=== PATIENT | male | born 1975 | race Caucasian/White ===

== ENCOUNTER 2018-10-24 09:28 | Day surgery (SDC) | payer OTHER ==
[2018-10-23 13:36] VITALS: BMI 25.0
--- NOTE | 2018-10-24 09:33 | HP ---
History & Physical Update - History History: No Change - Physical Physical: No Change - Assessment Assessment: No Change - Plan Plan: No Change
[2018-10-24] MEDS ORDERED: ONDANSETRON 4 MG/2 ML VIAL IVPUSH PRN (10:20)
[2018-10-24] MEDS ORDERED: oxyCODONE HCL 5 MG TABLET PO PRN (10:20)
[2018-10-24] MEDS ORDERED: PROMETHAZINE HCL 25 MG/1 ML VIAL IVPUSH PRN (10:20)
[2018-10-24] MEDS ORDERED: LACTATED RINGERS SOLUTION 1,000 ML IV SCH (10:30)
[2018-10-24] MEDS ORDERED: MIDAZOLAM HCL 2 MG/2 ML SINGLE DOSE VIAL ONE ×3 (10:39→11:08)
[2018-10-24] MEDS ORDERED: BUPIVACAINE HCL/PF 0.5% (5MG/ML) 10 ML VIAL ONE (10:41)
[2018-10-24] MEDS ORDERED: ceFAZolin SODIUM 1 GM VIAL ONE (11:04)
[2018-10-24] MEDS ORDERED: SODIUM CHLORIDE 0.9% P/F 10 ML VIAL IJ ONE (11:04)
[2018-10-24] MEDS ORDERED: ceFAZolin SODIUM 1 GM VIAL IVPB ONE (11:05)
[2018-10-24] MEDS ORDERED: LIDOCAINE 1%/EPI 1:100000 (20 ML MULTI DOSE VIAL) IJ ONE ×2 (11:30)
[2018-10-24] MEDS ORDERED: BUPIVACAINE HCL/PF 0.25% (2.5MG/ML) 10 ML VIAL IJ ONE ×2 (11:31)
[2018-10-24] MEDS ORDERED: LIDOCAINE HCL 2% JELLY 10 ML CARTRIDGE ONE (11:59)
--- NOTE | 2018-10-24 12:14 | OP ---
Operative Note - Note: Operative Date: 10/24/18 Pre-Operative Diagnosis: Stage 2 & 4 hemorrhoids Operation: proctosigmoidoscopy, eua, hemorrhoidectomy and suture ligation of internal hemorrhoids Findings: Stage 4 RP column and stage 2 RA & LL column hemorrhoids Post-Operative Diagnosis: Same as Pre-op Surgeon: Alli Espinoza Anesthesia: Spinal Specimens Removed: hemorrhoids Estimated Blood Loss (mls): 5 Operative Report Dictated: Yes
[2018-10-24] MEDS ORDERED: LIDOCAINE HCL 2% JELLY (5 ML/TUBE) TP ONE (12:30)
--- NOTE | 2018-10-24 12:39 | OP ---
DATE OF OPERATION: 10/24/2018 PROCEDURES PERFORMED: Proctosigmoidoscopy, examination under anesthesia, hemorrhoidectomy and suture ligation of stage 2 hemorrhoids. PREOPERATIVE DIAGNOSIS: Stage 4 hemorrhoids. POSTOPERATIVE DIAGNOSIS: Stage 4 right posterior column hemorrhoids and stage 2 right anterior and left lateral column hemorrhoids. SURGEON: Alli Espinoza M.D. ANESTHESIA: Spinal. INDICATIONS: This is a 43-year-old male who presented with long-standing history of prolapsing hemorrhoids, with recent thrombosis about 1 month ago, which was treated initially with sitz baths, pain medicine and stool softener. After the thrombosis was resolved, the patient was advised hemorrhoidectomy. Consent was obtained after discussing the risks, benefits and alternatives to the procedure. DESCRIPTION OF PROCEDURE: The patient was brought to the operating room and placed initially in the sitting position. Spinal anesthesia was administered. The patient was then placed in the lithotomy position. The perineum was prepped and draped in the usual sterile fashion. Perianal anesthesia using 1% lidocaine with epinephrine mixed with 0.25% bupivacaine was administered. The proctoscope was then inserted and passed up to 15 cm. The rectal mucosa was noted to be unremarkable. Using the lighted Bud-Douglass anal retractor, the anal canal was carefully inspected. One large stage 4 hemorrhoid at the right posterior column was again identified, with prolapsing rectal mucosa, the size of which was about 4 3 cm. Multiple small internal stage 2 hemorrhoids were noted, particularly more protuberant at the left lateral and right anterior hemorrhoidal columns. Small external hemorrhoids were also noted at the left lateral column area. Using Polysorb 2-0 suture, the base of the right posterior column stage 4 hemorrhoid was suture ligated, and the hemorrhoid was excised using Bovie cautery, excising both the internal and external components. The wound was then closed with continuous Polysorb 2-0 suture. Afterwards, the stage 2 hemorrhoids were suture ligated with Polysorb 2-0 sutures. The anal canal was again carefully inspected and it was noted to be free of active bleeding. A piece of Surgicel was inserted into the anal canal for further hemostasis. An ABD pad was then placed in the perineum. The patient was placed back in the supine position and transferred to the postanesthesia care unit in satisfactory condition. Estimated blood loss was about 5 mL. WOUND CLASS: Contaminated. The patient received 1 g of Ancef prior to the start of the procedure. Sky [id number] MTDD
[2018-10-24] MEDS ORDERED: oxyCODONE HCL 5 MG TABLET PO ONE (13:53)
[2018-10-24] MEDS ORDERED: oxyCODONE HCL 5 MG TABLET ONE (13:56)
[2018-10-24 15:39] VITALS: PULSE 80
[2018-10-24 18:08] VITALS: BP 128/80
[2018-10-24 20:32] VITALS: TEMP 98
--- NOTE | 2018-10-27 19:33 | PATH ---
Surgical Pathology Report Patient Name: CRISTIANE LAZO [facility] Rec. #: [id number] /Age/Gender: 1975 (Age: 43) / M Account: [id number] Location: [facility] SURGICAL Taken: 10/24/2018 Received: 10/24/2018 Reported: 10/27/2018 Physicians: Alli Espinoza M.D. Specimen(s) Received HEMORRHOIDS Clinical History Hemorrhoids Final Diagnosis HEMORRHOIDS, HEMORRHOIDECTOMY: POLYPOID SQUAMOCOLUMNAR MUCOSA WITH DILATED THICK WALLED CONGESTED SUBMUCOSAL VESSELS CONSISTENT WITH HEMORRHOIDS. Electronically Signed Jaleesa Sherman M.D. Gross Description Received in formalin labeled "hemorrhoids" is a pink-diggs focally hemorrhagic mucosal soft tissue measuring 2.5 x 2.5 x 1.4 cm. Cooker Sulfite sections are submitted in one cassette. MLSZ/10/24/2018 sanjuan/10/24/2018
== END 2018-10-24 20:30 | disposition home or self-care (01) ==
LOC: JASU-SURG 09:28
PROVIDERS: ATTEND Surgery
PROC: 06BY0ZC Excision of Hemorrhoidal Plexus, Open Approach (ICD-10-PCS; 2018-10-24)
PROC: 0DJD8ZZ Inspection of Lower Intestinal Tract, Via Natural or Artificial Opening Endoscopic (ICD-10-PCS; 2018-10-24)
PROC: 06BY0ZC Excision of Hemorrhoidal Plexus, Open Approach (ICD-10-PCS; principal; 2018-10-24 11:00)
DX: K64.3 Fourth degree hemorrhoids (principal); K64.1 Second degree hemorrhoids
CPT/HCPCS: 88304-TC; 94760